=== PATIENT | male | born 1945 | race Caucasian/White ===

== ENCOUNTER 2016-08-12 08:52 | Day surgery (SDC) | payer MEDICARE ==
[2016-08-12] MEDS ORDERED: CEFAZOLIN SODIUM 2 GRAM DUPLEX 50 ML IV PRN (09:00)
[2016-08-12] MEDS ORDERED: LACTATED RINGERS 1,000 ML ONE (09:12)
[2016-08-12] MEDS ORDERED: IV START KIT ONE (09:12)
[2016-08-12] MEDS ORDERED: CEFAZOLIN SODIUM 2 GRAM PREMIX 100 ML IV ONE (09:13)
[2016-08-12] MEDS ORDERED: MIDAZOLAM HCL 5 MG/5 ML VIAL ONE (10:06)
[2016-08-12] MEDS ORDERED: FENTANYL 100 MCG/2 ML VIAL ONE (10:08)
[2016-08-12] MEDS ORDERED: BACITRACIN 1 APPLIC/500 UNIT PACKET TP ONE (10:26)
[2016-08-12] MEDS ORDERED: BUPIVACAINE 0.5% (PRES FREE) 30 ML VIAL ONE (10:26)
[2016-08-12] MEDS ORDERED: BUPIVACAINE 0.75% SPINAL AMPUL 2 ML ONE (10:30)
[2016-08-12] MEDS ORDERED: ONDANSETRON 4 MG/2ML 2 ML VIAL ONE (10:30)
[2016-08-12] MEDS ORDERED: FAMOTIDINE 10 MG/ML 2ML VIAL ONE (10:30)
[2016-08-12] MEDS ORDERED: METOCLOPRAMIDE HCL 5 MG/ML 2ML VIAL ONE (10:30)
[2016-08-12] MEDS ORDERED: SPINAL PROCEDURAL TRAY 1 EACH ONE (10:30)
[2016-08-12] MEDS ORDERED: NALOXONE HCL 0.4 MG/ML VIAL IV PRN (10:37)
[2016-08-12] MEDS ORDERED: ONDANSETRON 4 MG/2ML 2 ML VIAL IV PRN ×2 (10:37→11:29)
[2016-08-12] MEDS ORDERED: ATROPINE SULFATE 0.4 MG/1 ML VIAL IV PRN (10:37)
[2016-08-12] MEDS ORDERED: LABETALOL HCL 5 MG/ML 20ML VIAL IV PRN (10:37)
[2016-08-12] MEDS ORDERED: MORPHINE SULFATE 4 MG/ML SYRINGE IV PRN (10:37)
[2016-08-12] MEDS ORDERED: PROMETHAZINE HCL 25 MG/ML VIAL IM PRN (10:37)
[2016-08-12] MEDS ORDERED: MEPERIDINE 25 MG/ML SYRINGE IV PRN (10:37)
[2016-08-12] MEDS ORDERED: LACTATED RINGERS 1,000 ML IV SCH (10:45)
[2016-08-12] MEDS ORDERED: HYDROCODONE/ACETAMINOPHEN 5/325MG TABLET PO PRN (11:29)
[2016-08-12] MEDS ORDERED: MORPHINE SULFATE 2 MG/ML SYRINGE IV PRN (11:29)
--- NOTE | 2016-08-12 12:38 | OP ---
TOY WALTON [id number] DATE OF PROCEDURE: August 12, 2016 SURGEON: Andry Chavez M.D. INJECTION MAINTENANCE TECHNICIAN: None. ANESTHESIA: Spinal. PREOPERATIVE DIAGNOSES: Phimosis with history of recurring balanoposthitis. POSTOPERATIVE DIAGNOSES: Phimosis with history of recurring balanoposthitis. PROCEDURE: CIRCUMCISION. SPECIMENS: None. INDICATIONS: This is a 71-year-old male with many years of progressive foreskin tightening and history of an episode of paraphimosis. He has had recurring bouts of balanoposthitis. He has now reached the point of having a nonretractable phimosis. FINDINGS: Nonretractable phimosis. No underlying ulceration or active inflammation at this time. PROCEDURE: The patient was identified and brought to the operating room where spinal anesthetic was applied, and then he was left in the supine position. The genital region was prepared and draped sterilely. Starting dorsally, an incision was made after crushing clamp application at the 12 o'clock position. The apex of this incision was secured with #4-0 Chromic procedure. A similar procedure was repeated ventrally. Then, left-sided foreskin flap was excised sharply. The exposed tissue bed was secured with light cautery to control minor bleeding. The surface was treated with 0.5% Marcaine and the cut edges of the skin were reapproximated with interrupted #4-0 Chromic sutures. A similar procedure was then repeated on the right side. At the conclusion, the wound was cleaned, antibiotic ointment applied to the suture line followed by Xeroform gauzed and a loose application of Kerlix roll. Estimated blood loss less than 20 mL. Sponge and needle counts were correct. No early complications. The patient tolerated the procedure well and was taken in stable condition to the post-anesthesia room. cc: Nona Ibrara M.D.
[2016-08-12] MEDS ORDERED: TRAMADOL HCL 50 MG TABLET ONE (12:48)
[2016-08-12] MEDS ORDERED: TRAMADOL HCL 50 MG TABLET PO ONE (12:50)
== END 2016-08-12 16:05 | disposition home or self-care (01) ==
LOC: SDC 08:52
PROVIDERS: ATTEND Urology
PROC: 0VTTXZZ Resection of Prepuce, External Approach (ICD-10-PCS; principal; 2016-08-12)
DX: N47.1 Phimosis (principal); N47.6 Balanoposthitis; I10 Essential (primary) hypertension; G47.33 Obstructive sleep apnea (adult) (pediatric); E66.9 Obesity, unspecified; Z95.0 Presence of cardiac pacemaker; Z68.35 Body mass index [BMI] 35.0-35.9, adult
CPT/HCPCS: 54161; J3010; J2765; A9270 ×2; J2250; J2405; J7120; J0690